=== PATIENT | female | born 1940 | race Caucasian/White ===

== ENCOUNTER 2020-11-27 14:59 | Inpatient (IN) | payer MEDICARE, BC ==
[~2020-11-27] VITALS: Ht 167.6 cm; Wt 99.3 kg
[2021-01-06] VITALS (10 sets, daily range): BP systolic 108–144; BP diastolic 51–82; PULSE 83–95; TEMP 98–98.3
[2021-01-06] MEDS ORDERED: LANTUS SOLOS100 U/ML SQ (07:04)
[2021-01-06] MEDS ORDERED: JANUMXR100-1000 PO (07:04)
[2021-01-06] MEDS ORDERED: ACTOS30 MG PO (07:05)
[2021-01-06] MEDS ORDERED: NORVASC 5MG5 MG/TAB PO (07:05)
[2021-01-06] MEDS ORDERED: PRINIVIL20 MG PO (07:05)
[2021-01-06] MEDS ORDERED: PRAVACHOL 20MG20 MG PO (07:06)
[2021-01-06] MEDS ORDERED: AMBIEN 5MG TABLE5 MG PO (07:06)
[2021-01-06] MEDS ORDERED: ZYRTEC 10MG10 MG PO (07:07)
[2021-01-06 08:02] LABS: CALCIUM 9.1 mg/dL (8.4-10.2); CREATININE, serum 0.73 (0.52-1.25); POTASSIUM 4.5 mmol/L (3.4-5.0)
--- NOTE | 2021-01-06 13:41 | NUR ---
Patient received post op from matilde. Cms intact. She is able to wiggle her toes, reports a throbbing pain to her left knee. Ice pack on. Repostioned pillow to keep knee straight. Morphine & ultram have been given for pain. Efra to Rle. Scds ble. Patient moaning in pain & disocomfort. Denies sob. Vss on O2. Ivf per orders. Will closely monitor.
--- NOTE | 2021-01-06 19:41 | NUR ---
Patient doing much better with pain this evening. Still rating pain high, but appears overall much more comfortable. She tolerated dinner without nausea. She has been up to bedside commode x2. No difficulty voiding. Slow, but steady. with walker & gaitbelt. Left knee dressing remains, CDI. Scds Ble. Ice pack to knee. Vss on O2.
[2021-01-07 00:23] VITALS: BP 131/60; PULSE 81; TEMP 98.1
[2021-01-07 03:13] VITALS: BP 145/63; PULSE 69; TEMP 97.8
--- NOTE | 2021-01-07 06:34 | NUR ---
PATIENT UP TO THE BEDSIDE COMMODE SEVERAL TIMES THROUGHOUT THE NIGHT. NO NEW ISSUES NOTED OR REPORTED BY PATIENT.
[2021-01-07 07:24] LABS: HEMATOCRIT 40.4 % (37.0-47.0); HEMOGLOBIN 13.2 g/dl (12.5-16.0)
[2021-01-07 08:00] VITALS: BP 154/65; PULSE 91; TEMP 98.5
--- NOTE | 2021-01-07 09:30 | NUR ---
PT UP TO BR THIS AM. VOIDED AND RETURNED TO BED TO FINISH BREAKFAST. SLOW STEADY GAIT. PT WANTS TO GO TO SWING BED IN [place] [facility] AT HOME HAS TO WORK AND CANT HELP PT IN RECOVERY PROCESS PER PT REPORT. DRESSING TO RIGHT KNEE CDI WITH OCCLUSIVE TORRI WRAP OVER INCISION TO BED CAHNGED LATER THIS AM.
[2021-01-07 11:47] VITALS: BP 132/45; PULSE 73; TEMP 97.6
--- NOTE | 2021-01-07 13:46 | NUR ---
Initial visit; Patient reading prayer card Psych Np left for her earlier though didn't comment when Psych Np asked if she could help in any way. She did finally respond and say she was in pain. Psych Np used empathy in letting Estefanía know Psych Np is available to her and stated that the first day after surgery is usually the most difficult and Psych Np would be praying that tomorrow will be better for her.
[2021-01-07 16:00] VITALS: BP 137/50; PULSE 69; TEMP 97.5
--- NOTE | 2021-01-07 16:45 | NUR ---
Sound Effects Supervisor met with the patient to complete intake. The patient lives with her daughter, La in [place]. The patient uses a walker to ambulate and receives assistance with showers from her daughter. The patient's PCP is VLADIMIR Lopez and patient receives medications from [facility]. The patient does not have advanced directives. The patient has three daughters, La, Dena ([place]), Smita ([place]). The patient reports Smita will be coming to stay with the patient on 5.20 for two weeks. The patient would like to go to [facility] at discharge. Referral sent. *Discharge disposition at this time: [facility]
[2021-01-07 20:28] VITALS: BP 141/51; PULSE 80; TEMP 97.5
--- NOTE | 2021-01-07 20:30 | NUR ---
Pt. sitting up in bed at this time. Pt. is A&OX3, assessment complete. Int to lt. hand patent. Dressing to lt. knee cdi. Pt. reports pain at an 8 on pain scale, giving pain meds at this time. Pt. denies further needs, call light within reach.
[2021-01-08 00:46] VITALS: BP 160/57; PULSE 94; TEMP 98.3
[2021-01-08 04:16] VITALS: BP 125/54; PULSE 79; TEMP 97.6
[2021-01-08 07:23] VITALS: BP 144/46; PULSE 95; TEMP 97.8
--- NOTE | 2021-01-08 09:35 | NUR ---
PT UP TO BR SEVERAL TIMES THIS AM. ATE BREAKFAST. WORKED WITH PT THIS AM AND IS CURRENTLY WORKING WITH OT IN SHOWER. PT CONTINUES TO RATE PAIN AT 8 OR 9 /10. PO PAIN MEDS GIVEN ORDERED. VERBAL ENCOURAGEMENT GIVEN DURING AND AFTER THERAPY. PLAN ON DISCHARGE TO SWING BED IN [facility].
[2021-01-08 11:41] VITALS: BP 129/49; PULSE 80; TEMP 98.4
--- NOTE | 2021-01-08 14:22 | NUR ---
Usha with [facility] contacted [facility] regarding acceptance. The patient is accepted for swing bed and they can accept the patient on 01/09. They would like the patient there as early as possible. KAREN staffed with the patient's nurse and ortho PA. PA states earliest the patient can discharge is 10:00 AM or 10:30 AM. KAREN met with the patient and the patient's daughter, Carlita to review the discharge plan. Carlita is agreeable to [facility] at 10:00 AM on 01/09. KAREN collaborated the above information with the patient's nurse.
[2021-01-08 15:56] VITALS: BP 100/43; PULSE 75; TEMP 97.8
[2021-01-08 20:09] VITALS: BP 111/43; PULSE 91; TEMP 97.4
--- NOTE | 2021-01-08 21:00 | NUR ---
PT BS=67. FED SNACK OF PEANUT BUTTER AND GRAHM CRACKERS. LEFT KNEE WITH AQUACEL DRSG D/I. BOTH LOWER LEGS WITH SWELLING. TRANSFERS WITH ONE ASSIST/GAIT BELT AND WALKER. SL TO LEFT WRIST. VOIDING WITHOUT PROBLEM.
--- NOTE | 2021-01-08 22:00 | NUR ---
BS=80. LEVEMIR GIVEN WELL AMBIEN FOR SLEEP.
--- NOTE | 2021-01-08 22:08 | NUR ---
NORCO 7.5MG 2 TABS PO FOR LEFT KNEE PAIN.
[2021-01-09 01:25] VITALS: BP 113/42; PULSE 84; TEMP 97.7
[2021-01-09 04:07] VITALS: BP 109/64; PULSE 92; TEMP 97.5
--- NOTE | 2021-01-09 06:30 | NUR ---
MEDICATED WITH NORCO 7.5MG 2 TABS FOR LEFT KNEE PAIN. UP TO BATHROOM TO VOID.
[2021-01-09] MEDS ORDERED: NORCO 325 MG-7.1 TAB PO (07:03)
[2021-01-09] MEDS ORDERED: ASPI325T6 PO (07:03)
[2021-01-09] MEDS ORDERED: ROXICODONE 55 MG/TAB PO (07:04)
[2021-01-09] MEDS ORDERED: SENOKOT S 50 MG1 TAB PO (07:04)
[2021-01-09 07:51] VITALS: BP 111/40; PULSE 88; TEMP 98.4
--- NOTE | 2021-01-09 08:00 | NUR ---
PATIENT IS DROWSY FROM PAIN MEDICATIONS THIS MORNING. PATIENT RESTING IN BED. PATIENT AROUSES TO NAME. AM SHIFT ASSESSMENT COMPLETED AT THIS TIME. MORNING BLOOD PRESSURE MEDICATIONS HELD DUE TO LOW BP THIS AM. LEFT KNEE AQUACEL WITH SCANT SHADING PRESENT. AM MEDICATIONS ADMINISTERED. BREAKFAST ORDERED. CALL LIGHT WITHIN REACH. PATIENT DENIES ADDITIONAL NEEDS AT THIS TIME.
--- NOTE | 2021-01-09 09:30 | NUR ---
PHYSICIAL THERAPY IN PATIENT ROOM. WORKING WITH PATIENT AT THIS TIME.
[2021-01-09 10:26] VITALS: BP 111/40; PULSE 88; TEMP 98.4
--- NOTE | 2021-01-09 11:00 | NUR ---
PATIENT PERSONAL BELONGINGS GATHERED. PATIENT TAKEN TO THE CAR VIA WHEELCHAIR BY SURGICAL STAFF. PATIENT TRANSFERRED.
--- NOTE | 2021-01-09 11:21 | NUR ---
PATIENT REPORT CALLED TO [facility] AT [facility]. PATIENT TRANSFERRED.
--- NOTE | 2021-01-09 11:38 | NUR ---
The patient discharged today, 01/09 to [facility] for post acute rehab. The patient's daughter, Carlita provided transportation. There are no additional needs.
== END 2021-01-09 11:00 | DRG 470 ==
LOC: INPTSU 01-06 06:33 → SURG 01-06 06:33
PROVIDERS: Nurse Anesthetist, Certified Registered; ADMIT Orthopaedic Surgery
PROC: 0SRD069 Replacement of Left Knee Joint with Oxidized Zirconium on Polyethylene Synthetic Substitute, Cemented, Open Approach (ICD-10-PCS; principal; 2021-01-06 10:15)
DX: M17.12 Unilateral primary osteoarthritis, left knee (principal); I10 Essential (primary) hypertension; E11.9 Type 2 diabetes mellitus without complications; M06.9 Rheumatoid arthritis, unspecified; E78.00 Pure hypercholesterolemia, unspecified; Z85.118 Personal history of other malignant neoplasm of bronchus and lung; Z87.891 Personal history of nicotine dependence; Z79.4 Long term (current) use of insulin; Z79.899 Other long term (current) drug therapy
CPT/HCPCS: A9284; C1713; C1776; J0690; J1815; J2250; J2270; J2704; J7030

== ENCOUNTER → 2020-12-24 | Outpatient (REF) ==
[~2020-12-24] MED LIST: ACTOS30 MG PO; AMBIEN 5MG TABLE5 MG PO; ASPI325T6 PO; JANUMXR100-1000 PO; LANTUS SOLOS100 U/ML SQ; NORCO 325 MG-7.1 TAB PO; NORVASC 5MG5 MG/TAB PO; PRAVACHOL 20MG20 MG PO; PRINIVIL20 MG PO; ROXICODONE 55 MG/TAB PO; SENOKOT S 50 MG1 TAB PO; ZYRTEC 10MG10 MG PO
== END ==
LOC: ZLAB.WCH 17:09
DX: Z01.89 Encounter for other specified special examinations (principal)

== ENCOUNTER → 2021-01-19 | Outpatient (REF) | LOC: EDBD 09:57 → ZLAB.WCH 09:57 | DX: Z01.89 Encounter for other specified special examinations (principal) ==

== ENCOUNTER 2021-01-20 13:09 | Outpatient (CLI) | payer MEDICARE, BC ==
[~2021-01-20] VITALS: Ht 167.6 cm; Wt 100.0 kg
--- NOTE | 2021-01-20 12:00 | NUR ---
pt did not bring in home list, hospital med list from admission to hospital on chart
[2021-01-20 12:37] VITALS: BP 136/44; PULSE 92; TEMP 97.8
--- NOTE | 2021-01-20 13:00 | NUR ---
EMS CALLED FOR TRANSPORT BACK TO [facility], HAS PICC TO UPPER RIGHT ARM WRAPPED IN TORRI, REPORT CALLED TO NURSE AT [facility] AND PAPERS FOR PICC PLACEMENT SENT WITH PT, EMS HERE, UP TO B/R TO VOID, THEN ON CART
== END 2021-01-20 13:15 ==
LOC: EUO 13:09
DX: Z45.2 Encounter for adjustment and management of vascular access device (principal); L03.116 Cellulitis of left lower limb; I82.402 Acute embolism and thrombosis of unspecified deep veins of left lower extremity; K59.00 Constipation, unspecified; E11.9 Type 2 diabetes mellitus without complications; Z96.652 Presence of left artificial knee joint
CPT/HCPCS: C1751

== ENCOUNTER → 2023-02-02 | Outpatient (REF) | payer MEDICARE, BC ==
[~2023-02-02] MED LIST changes: +AMBIEN 10MG10 MG PO; +ASPIRIN E.C. 8181 MG PO; +DOXYCYCLINE 10100 MG PO; +GLUCOPHAGE500 MG/TAB PO; +LASIX 20MG TABL20 MG PO; +MAG-OX 400400 MG/TAB PO; +NORCO 325 MG-51 TAB PO; +NOVLOG SQ; +NOVOLOG 100U100 U/M1 SQ; +OXYGEN; +PERCOCET 325 MG1 TA2 PO; +PRAVACHOL80 MG PO; +PREDNISONE20 MG PO; +PRINIVIL10 MG PO; +PULMICORT90 MCG/Act IH; +ROCEPHIN VIA1 G/VIAL IV; +TOPROL XL 25MG25 MG PO
[2023-02-02 16:15] LABS: ALBUMIN 2.4 gm/dL (3.4-4.8); BILIRUBIN,TOTAL 0.2 mg/dL (0.2-1.2); C-REACTIVE PROTEIN 9.53 mg/dL (0.00-0.50); CALCIUM 9.1 mg/dL (8.4-10.2); CREATININE, serum 1.04 mg/dL (0.57-1.11); TOTAL PROTEIN 6.2 gm/dL (6.2-8.1)
[2023-02-02 16:24] LABS: BASO # 0.1 K/mm3 (0.0-0.2); BASO % 0.4 % (0.0-2.0); EOS # 0.6 K/mm3 (0.0-0.7); EOS % 4.2 % (0.0-4.0); GRAN # 10.3 K/mm3 (1.4-6.5); GRAN % 79.2 % (42.2-75.2); HEMATOCRIT 30.7 % (37.0-47.0); HEMOGLOBIN 9.3 g/dl (12.5-16.0); LYMPH # 1.1 K/mm3 (1.2-3.4); LYMPH % 8.6 % (20.0-51.0); MEAN CELL VOLUME 93 fl (80.0-100.0); MEAN CORPUSCULAR HEMOGLOBIN 28 pg (27-31); MEAN CORPUSCULAR HGB CONC 30 g/dl (33.0-37.0); MONO # 0.9 K/mm3 (0.1-0.6); MONO % 6.7 % (1.7-9.3); PLATELET COUNT 315 K/mm3 (130-400); RED BLOOD COUNT 3.32 M/mm3 (4.10-5.30); REDCELL DISTRIBUTION WIDTH-CV 16.6 % (11.5-14.5)
== END ==
LOC: ZCOL.LAB 15:44
PROVIDERS: Family Medicine
DX: Z16.30 Resistance to unspecified antimicrobial drugs (principal); Z16.35 Resistance to multiple antimicrobial drugs